=== PATIENT | male | born 1965 | race Caucasian/White ===

== ENCOUNTER 2025-01-24 06:17 | Day surgery (SDC) | payer BC ==
[2025-01-24 06:50] LABS: Glucose,Whole Blood 138 mg/dL (70-110)
[2025-01-24 07:10] VITALS: BP 179/94; PULSE 60; RESP 16; TEMP 97.6
== END 2025-01-24 08:48 | disposition home or self-care (01) ==
LOC: CATHCVL 06:17
PROVIDERS: ATTEND Internal Medicine Infectious Disease
DX: M86.171 Other acute osteomyelitis, right ankle and foot (principal)
CPT/HCPCS: 36573; C1751